=== PATIENT | male | born 1980 | race Caucasian/White ===

== ENCOUNTER 2023-03-10 05:40 | Emergency (ER) | payer OTHER ==
[2023-03-10 05:48] VITALS: BP 142/100; PULSE 75; RESP 16; TEMP 97.6; BMI 26.7
== END 2023-03-10 06:01 | disposition home or self-care (01) ==
LOC: FER 05:40
DX: R22.0 Localized swelling, mass and lump, head (principal); R51.9 Headache, unspecified
CPT/HCPCS: 99283-25